=== PATIENT | female | born 1995 | race African-American/Black ===

== ENCOUNTER 2017-01-04 07:58 | Emergency (ER) | payer BC, OTHER ==
[~2017-01-04 07:58] MED LIST: NS 1000 ML 1,000 ML ONE
[2017-01-04 08:02] VITALS: BMI 22.6
--- NOTE | 2017-01-04 08:09 | DR.GENAD ---
HPI - PCP Primary Care Physician: ROSE MARIE - Complaint/Symptoms Chief Complaint:: PATIENT WAS IN THE OR WATCHING A PROCEDURE AND PASSED OUT. SHE STATED THAT SHE STARTED SEEING STARS THEN WENT BLACK. SHE IS NO C/O OF HEAD PAIN ON THE RIGHT SIDE WHERE STAFF STATED SHE HIT THE TABLE. - Nurses notes reviewed Nurses Notes Review: Yes - Source History Provided: Patient - Mode of Arrival Mode of Arrival: Wheelchair - Timing Onset of Chief Complaint: 01/04/17 Came on: Suddenly - Duration Duration: Minutes - Location Location: right head - Severity Severity: Mild - Associated Signs and Symptoms Associated Signs and Symptoms: did not eat <SADI SRINIVASAN - Last Filed: 01/04/17 08:10> - Nurses notes reviewed Nurses Notes Review: Yes <QASIM GARCIA - Last Filed: 01/04/17 11:22> PMH - PMH Past Medical History: No Past Surgical History: No Surgical History: No History - Family History History of Family Medical Conditions: Yes Family Medical History: Diabetes Mellitus, Cancer, [place], Coronary Artery Disease, Heart Failure, Hypertension - Social History Does patient currently use any type of tobacco product: No Have you used tobacco products in the last 12 months: No Type of Tobacco Use: None Does any household member use tobacco: No Alcohol Use: None Do you use any recreational Drugs:: No Lives With: Family Lives Where: Home - infectious screening In the last 2 months have you had wt loss of >10#?: NO Have you had fever, night sweats or hemotysis?: No Have you traveled outside the country in the last 6 months?: No Isolation: Standard <SADI SRINIVASAN - Last Filed: 01/04/17 08:10> ROS - Review of Systems Constitutional: No Symptoms Reported Eyes: No Symptoms Reported ENTM: No Symptoms Reported Respiratoy: No Symptoms Reported Cardiovascular: No Symptoms Reported Gastrointestinal/Abdominal: No Symptoms Reported Genitourinary: No Symptoms Reported Neurological: See HPI Musculoskeletal: No Symptoms Reported Integumentary: No Symptoms Reported Hematologic/Lymphatic: No Symptoms Reported Endocrine: No Symptoms Reported Psychiatric: No Symptoms Reported <SADI SRINIVASAN - Last Filed: 01/04/17 08:10> PE - General Limitations: No Limitations General Appearance: Alert, In No Apparent Distress - Head Head Exam: Normal Inspection - Eyes Eye exam: Normal Appearance, EOMI. negative: Scleral Icterus, Conjunctival Injection - ENT ENT Exam: Normal Exam, Normal Oropharynx External Ear Exam: Normal External Inspection - Neck Neck Exam: Normal Inspection, Full ROM, Trachea Midline - Chest Chest Inspection: Normal Inspection - Respiratory Respiratory Exam: Normal Lung Sounds Bilat. negative: Accessory Muscle Use, Respiratory Distress Respiratory Exam: Bilateral Clear to Auscultation - Cardiovascular Cardiovascular Exam: Regular Rate - Extremities Extremities Exam: Normal Inspection, Full ROM - Back Back Exam: Normal Inspection, Full ROM - Neurologic Neurological Exam: Alert, Oriented X3, CN II-XII Intact - Psychiatric Psychiatric Exam: Normal Mood - Skin Skin Exam: Intact, Normal Color <SADI SRINIVASAN - Last Filed: 01/04/17 08:10> MDM - Additional Information Additional Information Obtained From: Family - Differential Diagnosis Differential Diagnosis: SYNCOPAL EPISODE. <QASIM GARCIA - Last Filed: 01/04/17 11:22> Course - Treatment Treatment: SEE ORDERS. - Education/Counseling Education/Counseling: Patient, Family, Education Educated On: Diagnosis, Needs for Follow Up <QASIM GARCIA - Last Filed: 01/04/17 11:22> ROR - Labs Reviewed Laboratory Results Reviewed?: Yes Result Diagrams: 01/04/17 08:38 01/04/17 08:38 - XRAY XRAY Interpreted by: Radiologist XRAY Findings: REPORT DISCUSS WITH MEGHANNTIENT. - EKG Rhythm: NSR (EKG NOTED) <QASIM GARCIA - Last Filed: 01/04/17 11:22> - Labs Reviewed Laboratory: WBC 6.6 X10^3/uL (3.6-10.0) 01/04/17 08:38 RBC 4.42 X10^6/uL (3.5-5.4) 01/04/17 08:38 Hgb 11.4 g/dL (12.0-16.0) L 01/04/17 08:38 Hct 35.1 % (36.0-47.0) L 01/04/17 08:38 MCV 79.6 fL (80.0-100.0) L 01/04/17 08:38 MCH 25.8 pg (27.0-34.0) L 01/04/17 08:38 MCHC 32.5 g/dL (33.0-35.0) L 01/04/17 08:38 RDW 14.6 % (11.6-16.5) 01/04/17 08:38 Plt Count 245 X10^3/uL (150.0-450.0) 01/04/17 08:38 Plt Count Comment Adequate (ADEQUATE) 01/04/17 08:38 MPV 8.1 fL (7.4-11.0) 01/04/17 08:38 Neut % 51.7 % (42.0-75.0) 01/04/17 08:38 Lymph % 33.9 % (21.0-51.0) 01/04/17 08:38 [place] % 10.5 % (0.0-13.0) 01/04/17 08:38 Eos % 3.2 % (0.9-2.9) H 01/04/17 08:38 Baso % 0.7 % (0.2-1.0) 01/04/17 08:38 Neut # 3.4 x10^3/uL (2.2-4.8) 01/04/17 08:38 Lymph # 2.2 X10^3/uL (1.3-2.9) 01/04/17 08:38 [place] # 0.7 x10^3/uL (0.3-0.8) 01/04/17 08:38 Eos # 0.2 x10^3/uL (0.0-0.2) 01/04/17 08:38 Baso # 0.0 X10^3/uL (0.0-0.1) 01/04/17 08:38 Absolute Nucleated RBC 0.0 /100WBC 01/04/17 08:38 Plt Morphology Comment Normal (NORMAL) 01/04/17 08:38 RBC Morphology Normal (NORMAL) 01/04/17 08:38 Sodium 142 mmol/L (136-145) 01/04/17 08:38 Corrected Sodium TNP 01/04/17 08:38 Potassium 4.2 mmol/L (3.5-5.1) 01/04/17 08:38 Chloride 106 mmol/L (98-107) 01/04/17 08:38 Carbon Dioxide 24.3 mmol/L (21-32) 01/04/17 08:38 BUN 9 mg/dL (7-18) 01/04/17 08:38 Creatinine 0.85 mg/dL (0.55-1.02) 01/04/17 08:38 Est GFR (MDRD) Af Amer > 60 (>60) 01/04/17 08:38 Est GFR (MDRD) Non-Af > 60 (>60) 01/04/17 08:38 Glucose 92 mg/dL (65-99) 01/04/17 08:38 Calcium 8.7 mg/dL (8.5-10.1) 01/04/17 08:38 Corrected Calcium 9.3 mg/dL (8.5-10.1) 01/04/17 08:38 Total Bilirubin 0.50 mg/dL (0.2-1.0) 01/04/17 08:38 AST 20 Units/L (15-37) 01/04/17 08:38 ALT 17 Units/L (12-78) 01/04/17 08:38 Alkaline Phosphatase 67 Units/L (46-116) 01/04/17 08:38 Creatine Kinase 142 Units/L (26-192) 01/04/17 08:38 CK-MB (CK-2) < 1.0 ng/mL (0-4.0) 01/04/17 08:38 CK/CKMB % Calc 0.7 % (<4) 01/04/17 08:38 Troponin I < 0.02 ng/mL (0-1.5) 01/04/17 08:38 Total Protein 7.6 g/dL (6.4-8.2) 01/04/17 08:38 Albumin 3.2 g/dL (3.4-5.0) L 01/04/17 08:38 Globulin 4.4 g/dL (2.5-4.5) 01/04/17 08:38 Albumin/Globulin Ratio 0.7 Ratio (1.1-2.1) L 01/04/17 08:38 (QASIM GARCIA) <SADI SRINIVASAN - Last Filed: 01/04/17 08:10> <QASIM GARCIA - Last Filed: 01/04/17 11:22> - Diagnosis Discharge Problem: Vasovagal episode Episode of syncope Qualifiers: Syncope type: vasovagal syncope Qualified Code(s): R55 - Syncope and collapse - Discharge Plan Disposition: HOME, SELF-CARE Condition: Stable Prescriptions: Ibuprofen [MOTRIN TAB 600 MG *] 600 mg PO TID PRN #20 tab PRN Reason: Pain/Inflammation - Follow ups/Referrals Follow ups/Referrals: Geronimo Wan [Primary Care Provider] - 3 days - Instructions Instructions: Syncope Additional Instructions: RETURN TO ED IF WORSE.
--- NOTE | 2017-01-04 08:35 | CT ---
CT head without contrast Indication: Head trauma after fall from syncope. Technique: Axial images from the skullbase to the vertex without contrast. Coronal and sagittal refo rmats provided. Comparison: April 11, 2015. Findings: There is no acute intracranial hemorrhage, mass or mass effect. No extra-axial fluid colle ction or abnormal area of hypoattenuation to suggest infarction seen. Ventricles sulci are normal. N o osseous abnormality seen. Paranasal sinuses and mastoid air cells are clear. Impression: No acute intracranial abnormality. Reported By:
[2017-01-04] MEDS ORDERED: NS 1000 ML 1,000 ML IV ONE (08:43)
[2017-01-04 08:55] LABS: BASOPHILS % (AUTO) 0.7 % (0.2-1.0); EOSINOPHILS # (AUTO) 0.2 x10^3/uL (0.0-0.2); EOSINOPHILS % (AUTO) 3.2 % (0.9-2.9); HEMATOCRIT 35.1 % (36.0-47.0); HEMOGLOBIN 11.4 g/dL (12.0-16.0); LYMPHOCYTES # (AUTO) 2.2 X10^3/uL (1.3-2.9); LYMPHOCYTES % (AUTO) 33.9 % (21.0-51.0); MEAN CORPUSCULAR HEMOGLOBIN 25.8 pg (27.0-34.0); MEAN CORPUSCULAR HGB CONC 32.5 g/dL (33.0-35.0); MEAN CORPUSCULAR VOLUME 79.6 fL (80.0-100.0); MEAN PLATELET VOLUME 8.1 fL (7.4-11.0); MONOCYTES # (AUTO) 0.7 x10^3/uL (0.3-0.8); MONOCYTES % (AUTO) 10.5 % (0.0-13.0); NEUTROPHILS # (AUTO) 3.4 x10^3/uL (2.2-4.8); NEUTROPHILS % (AUTO) 51.7 % (42.0-75.0); PLATELET COUNT 245 X10^3/uL (150.0-450.0); RED BLOOD COUNT 4.42 X10^6/uL (3.5-5.4); RED CELL DISTRIBUTION WIDTH 14.6 % (11.6-16.5); WHITE BLOOD COUNT 6.6 X10^3/uL (3.6-10.0)
[2017-01-04 09:28] LABS: PLATELET MORPHOLOGY COMMENT NORMAL (NORMAL)
[2017-01-04 09:33] LABS: BLOOD UREA NITROGEN 9 mg/dL (7-18); CALCIUM 8.7 mg/dL (8.5-10.1); CARBON DIOXIDE 24.3 mmol/L (21-32); CHLORIDE 106 mmol/L (98-107); CREATININE 0.85 mg/dL (0.55-1.02); GLUCOSE 92 mg/dL (65-99); SODIUM 142 mmol/L (136-145); eGFR BLACK RACES > 60 (>60); eGFR NON BLACK RACES > 60 (>60)
[2017-01-04 10:15] VITALS: BP 116/74
[2017-01-04 10:19] LABS: ALANINE AMINOTRANSFERASE 17 Units/L (12-78); ALBUMIN 3.2 g/dL (3.4-5.0); ALKALINE PHOSPHATASE 67 Units/L (46-116); ASPARTATE AMINO TRANSFERASE 20 Units/L (15-37); CKMB % 0.7 % (<4); COR CA(FOR HYPOALB) 9.3 mg/dL (8.5-10.1); CREATINE KINASE 142 Units/L (26-192); CREATINE KINASE MB < 1.0 ng/mL (0-4.0); TOTAL PROTEIN 7.6 g/dL (6.4-8.2); TROPONIN I < 0.02 ng/mL (0-1.5)
== END 2017-01-04 10:19 | disposition home or self-care (01) | DRG 312 ==
LOC: ER 07:58
DX: R55 Syncope and collapse (principal); W22.8XXA Striking against or struck by other objects, initial encounter; Y92.234 Operating room of hospital as the place of occurrence of the external cause
CPT/HCPCS: 36415; 70450; 80053; 82550; 82553; 84484; 85025; 93005; 93010; 96365; 99283; A4222